=== PATIENT | male | born 1935 | race Caucasian/White ===

== ENCOUNTER → 2020-06-26 14:24 | Outpatient (BNVA) | payer MEDICARE, SELFPAY | PROVIDERS: PCP Family Medicine; Visit Provider Urology | DX: N40.1 Benign prostatic hyperplasia with lower urinary tract symptoms (principal); N13.8 Other obstructive and reflux uropathy; R39.15 Urgency of urination | CPT/HCPCS: 52000; 99212 ==

== ENCOUNTER 2020-08-25 07:31 | Emergency (ER) | payer MEDICARE, SELFPAY ==
[2020-08-25 08:02] VITALS: BP 140/61; PULSE 85; RESP 18; TEMP 36.6; O2SAT 96; BMI 30.4
--- NOTE | 2020-08-25 08:20 | ED.MALEGU ---
HPI - Male Genitourinary General Chief complaint: Urogenital-Male Stated complaint: Bladder distress Time Seen by Provider: 08/25/20 08:11 Source: patient Mode of arrival: ambulatory Limitations: no limitations History of Present Illness HPI Narrative: 85 yo male with past medical history of BPH, HTN, non-ischemic cardiomyopathy with EF 45% here with complaints of urinary retention since 2am. Patient reports multiple episodes of of this requiring Centeno catheter placement. He has a procedure tomorrow with Dr. Marte for laser ablation of the prostate. No nausea, vomiting, fevers, chills. Feeling well lately. No urinary symptoms prior to today. Related Data Home Medications Medication Instructions Recorded Confirmed lisinopril 5 mg PO DAILY 07/17/20 07/17/20 Previous Rx's Medication Instructions Recorded terazosin 10 mg capsule 10 mg PO BEDTIME 90 Days #90 cap 03/05/20 Allergies Allergy/AdvReac Type Severity Reaction Status Date / Time No Known Allergies Allergy Verified 06/26/20 15:02 Review of Systems Review of Systems: Yes all other systems are reviewed and are negative Constitutional: Constitutional: Reports no additional constitutional complaints, Denies body ache(s), Denies chills, Denies fever(s), Denies headache(s) and Denies weakness Eyes: Eyes: Reports no additional eye complaints and Denies change in vision ENT: Reports system reviewed and no additional complaints, except as documented, Denies dizziness, Denies headache(s), Denies nasal congestion, Denies nasal discharge and Denies neck pain Cardiovascular: Cardiovascular: Reports no additional cardiovascular complaints, Denies chest pain, Denies leg edema and Denies dyspnea Respiratory: Respiratory: Reports no additional respiratory complaints, Denies cough and Denies dyspnea Gastrointestinal: Gastrointestinal: Reports no additional gastrointestinal complaints, Denies abdominal pain, Denies diarrhea, Denies nausea and Denies vomiting Genitourinary: Genitourinary: Reports difficulty urinating, Denies dysuria, Denies flank pain, Denies penile discharge, Denies scrotal swelling, Denies testicular mass, Denies testicular pain and Denies urinary incontinence Musculoskeletal: Musculoskeletal: Reports no additional musculoskeletal complaints, Denies back pain, Denies arthralgias, Denies joint swelling, Denies neck pain, Denies numbness and Denies tingling Integumentary/Breasts: Skin/Breast: Reports system reviewed and no additional complaints, except as docu and Denies rash Neurologic: Reports system reviewed and no additional complaints, except as documented, Denies Abnormal speech present, Denies dizziness, Denies headache(s), Denies numbness, Denies tingling and Denies weakness PMFSH Past Medical History Attestation statement: The following information was validated with the patient. Source: old records reviewed and nursing notes reviewed Medical History BPH w urinary obs/LUTS History of BPH HTN (hypertension) Nonischemic cardiomyopathy Surgical History Surgical history unknown Social History Social History Patient Tobacco Use Status: Never used Tobacco Use of substances other than those prescribed or required for medical reasons: No Advance Directives: Yes Advance Directives Information Provided: Yes Advance Directives on File: No Physical Exam Vital Signs: Vital Signs: Last Vital Signs Temp 97.8 F 08/25/20 08:02 Pulse 85 08/25/20 08:02 Resp 18 08/25/20 08:02 BP 140/61 H 08/25/20 08:02 Pulse Ox 96 08/25/20 08:02 Body Mass Index 30.4 Const: General: cooperative, healthy appearing, comfortable and no acute distress Orientation/consciousness: patient oriented x3 Limitations: no limitations HENMT: Head: Yes normal to inspection Ears: hearing grossly normal bilaterally General nose exam: Normal external nose present Face and sinus: Yes normal facial exam Mouth: Normal oral and palatal mucosa present Throat: Yes posterior oropharynx normal Eyes: General: appearance normal, both eyes and all related structures Pupils: Equal, round and reactive pupils present Neck: Neck: Yes normal visual inspection Chest: Chest palpation & inspection: normal inspection of the chest Resp: Effort & Inspection: normal respiratory effort Auscultation: clear to auscultation bilaterally Cardio: Rate: regular rate Rhythm: regular rhythm Peripheral pulses: Peripheral pulses 2+ throughout GI: Other: Bladder distension noted Inspection: Yes normal to inspection Palpation (GI): Soft to palpation and nontender Auscultation: normal bowel sounds Back/Spine/Pelvis: Thoracic/Lumbar Spine: thoracic and lumbar spine normal to inspection Skin: General skin exam: no rashes or lesions noted Neuro: General: patient oriented x3, no focal motor deficits and normal sensation to monofilament Cranial nerves: Yes Equal, round and reactive pupils present Cognition (Neuro): normal cognition Speech: No Abnormal speech present Gait exam (Neuro): Normal gait present Motor exam (neuro): 5/5 motor strength present throughout Extrem: General: Yes normal to inspection, Yes no pedal edema and Yes no calf tenderness Course Course Course Narrative: 85-year-old male with a past medical history of BPH here with complaints of urinary retention since 02:00. Bladder scan shows greater than 800 mL of urine. Will need labs, UA, Centeno catheter placement 0930-Centeno catheter placed with no difficulty. Labs and urine are unremarkable. Discussed with urology on-call (Dr Fairbanks) who recommended following up in the morning for the scheduled procedure. Reviewed worrisome signs and symptoms with family and patient. Comfortable with discharge home. MDM - Male Genitourinary Differential Diagnosis Differential diagnosis: Likely urinary tract infection and acute retention of urine Medical Records Attestation: I reviewed the patient's medical records. Lab Data Attestation: I reviewed the patient's lab results. Result diagrams: 08/25/20 08:57 08/25/20 08:57 Labs: Lab Results 08/25/20 08/25/20 08/25/20 Range/Units 08:57 08:57 08:57 WBC 10.1 (4.8-10.8) X10*3/uL RBC 4.71 (4.60-5.80) X10*6/uL Hgb 14.4 (14.0-18.0) g/dl Hct 43.6 (42-52) % MCV 92.6 (80-98) fL MCH 30.6 (27.0-33.0) pg MCHC 33.0 (31.0-36.0) g/dl RDW 14.2 (11.0-16.0) % Plt Count 174 (160-400) X10*3/uL MPV 10.5 (9.4-12.4) fL Immature Gran % (Auto) 0.4 (0.0-0.4) % Neut % (Auto) 89.2 H (45-73) % Lymph % (Auto) 3.6 L (20-40) % [place] % (Auto) 6.5 (2-11) % Eos % (Auto) 0.1 (0-4) % Baso % (Auto) 0.2 (0-2) % Lymph # (Auto) 0.4 L (1.2-4.9) X10*3/uL [place] # (Auto) 0.7 (0.1-1.2) X10*3/uL Eos # (Auto) 0.0 (0.0-0.4) X10*3/uL Baso # (Auto) 0.0 (0.0-0.2) X10*3/uL Abs Immat Gran (auto) 0.04 H (0.00-0.03) X10*3/uL Absolute Neuts (auto) 9.0 H (2.0-8.3) X10*3/uL Absolute Nucleated RBC 0.000 (0.0-0.012) X10*3/uL Nucleated RBC % (auto) 0.0 (0.0-0.2) /100WBC Smear Tech's Comments VERIFIED Sodium 137 (135-145) mmol/L Potassium 4.7 (3.3-5.1) mmol/L Chloride 104 (96-108) mmol/L Carbon Dioxide 25 (22-29) mmol/L Anion Gap 13 (12-20) BUN 20 H (9-16) mg/dL Creatinine 1.15 (0.5-1.4) mg/dL Estim Creat Clear Calc 51.3 Estimated GFR > 60 Random Glucose 130 H (60-115) mg/dL Calcium 8.9 (8.4-10.2) mg/dL Urine Color YELLOW Urine Appearance CLEAR Urine pH 6.0 (5.0-8.0) Ur Specific [place] 1.010 (1.005-1.025) Urine Protein NEG (NEG-TRACE) MG/DL Urine Glucose (UA) NEG (NEG) MG/DL Urine Ketones NEG (NEG) MG/DL Urine Blood 2+ H (NEG) Urine Nitrite NEG (NEG) Ur Leukocyte Esterase NEG (NEG) Urine RBC 15-29 H (0) /HPF Urine WBC 0-2 (0-4) /HPF Ur Squamous Epith Cells NONE /LPF Urine Bacteria NONE /LPF Discharge Plan Discharge Clinical Impression: Acute retention of urine Patient Disposition: Home, Self-Care Instructions: Urinary Retention in Men (ED) Additional Instructions: Due to urinary retention you had a Centeno catheter placed. Urology was notified that you were here. Go to your procedure tomorrow as scheduled Your blood work and urine sample look a normal The Centeno catheter will stay in place until removed by Urology Prescriptions: No Action terazosin 10 mg capsule 10 mg PO BEDTIME 90 Days Qty: 90 RF: 2 lisinopril 5 mg tablet 5 mg PO DAILY RF: 0 Referrals: Aaron Marte MD [Physician] - 2 days Interventions: ED Discharge Assessment Last Done: 08/25/20 10:07 Discharge Date/Time: 08/25/20 10:07
[2020-08-25] MEDS: Lidocaine HCl 2 % Urojet 10 ML JEL.PF.APP TOPICAL (08:38)
--- NOTE | 2020-08-25 08:52 | PC.NURSE ---
Bladder scan 806, 16fr coude cath with 30ml balloon inserted without difficulty. 700ml output of yellow urine in drainage bag. Family at bedside. Labs/UA to be obtained
[2020-08-25 09:05] LABS: Basophils Percent Auto 0.2 % (0-2); Eosinophils Percent Auto 0.1 % (0-4); Hematocrit 43.6 % (42-52); Hemoglobin 14.4 g/dl (14.0-18.0); Imm Gran Abs Auto 0.04 X10*3/uL (0.00-0.03); Imm Gran Pct Auto 0.4 % (0.0-0.4); Lymphocytes Absolute Auto 0.4 X10*3/uL (1.2-4.9); Lymphocytes Percent Auto 3.6 % (20-40); MANUAL DIFF FLAG SCAN; Mean Corpuscular Hemoglobin 30.6 pg (27.0-33.0); Mean Corpuscular Volume 92.6 fL (80-98); Mean Platelet Volume 10.5 fL (9.4-12.4); Monocytes Absolute Auto 0.7 X10*3/uL (0.1-1.2); Monocytes Percent Auto 6.5 % (2-11); Neutrophils Percent Auto 89.2 % (45-73); Platelet Count 174 X10*3/uL (160-400); Red Blood Count 4.71 X10*6/uL (4.60-5.80); Red Cell Distribution Width 14.2 % (11.0-16.0); SCAN SMEAR FLAG 1; White Blood Count 10.1 X10*3/uL (4.8-10.8)
[2020-08-25 09:14] LABS: Glucose Urine UA NEG (NEG); Leukocyte Esterase Urine NEG (NEG); Nitrite Urine NEG (NEG); Urine Blood 2+ (NEG); Urine Ketones NEG (NEG); Urine Protein NEG (NEG-TRACE)
[2020-08-25 09:23] LABS: Appearance Urine CLEAR; Color Urine YELLOW
[2020-08-25 09:24] LABS: WBC Urine 0-2 /HPF (0-4)
[2020-08-25 09:25] LABS: SLIDE REVIEW VERIFIED
[2020-08-25 09:29] LABS: Anion Gap 13 (12-20); Blood Urea Nitrogen 20 mg/dL (9-16); Calcium 8.9 mg/dL (8.4-10.2); Carbon Dioxide 25 mmol/L (22-29); Chloride 104 mmol/L (96-108); Creatinine Clr Calc Pharmacy 51.3; Estimated Glomerular Filt Rate > 60; Glucose Random 130 mg/dL (60-115); Potassium 4.7 mmol/L (3.3-5.1); Sodium 137 mmol/L (135-145)
== END 2020-08-25 10:07 | disposition home or self-care (01) ==
PROVIDERS: Nurse Practitioner Family; Emergency Provider Emergency Medicine Emergency Medical Services
DX: N40.1 Benign prostatic hyperplasia with lower urinary tract symptoms (principal); R33.8 Other retention of urine
CPT/HCPCS: 36415; 51702; 51798; 80048; 81001; 85025; 99284; 99285

== ENCOUNTER 2020-08-26 07:54 | Day surgery (SDC) | payer MEDICARE, SELFPAY ==
--- NOTE | 2020-08-23 11:59 | HO.ANESPROP2 ---
Documented by User: Jackeline Soto 08/23/20 12:03 HPI - Anesthesia Eval Consult details Narrative: 85yo M for Laser Ablation Prostate w/Green Light Cardiac cleared PMFSH Active Problems Active Problems: All Active Problems (Updated 07/17/20 @ 11:13 by Maxine Dobbs) BPH w urinary obs/LUTS (Acute) Urinary urgency (Acute) Past Medical History Medical History BPH w urinary obs/LUTS History of BPH HTN (hypertension) Nonischemic cardiomyopathy Surgical History Surgical History Surgical history unknown Social History Social History Patient Tobacco Use Status: Never used Tobacco Use of substances other than those prescribed or required for medical reasons: No Are you DNR?: No Advance Directives: No Advance Directives Information Provided: Yes Meds Allergies Allergy/AdvReac Type Severity Reaction Status Date / Time No Known Allergies Allergy Verified 06/26/20 15:02 Home Medications Medication Instructions Recorded Confirmed Last Taken Type lisinopril 5 mg PO DAILY 07/17/20 07/17/20 08/26/20 04:00 History Exam Exam Date and Time: August 23, 2020 115 Narrative Narrative: Per cardiac clearance 07/30/20 EF 40% EKG: SR with first degree av block and PACs with LBBB Assessment and Plan Assessment Anesthesia Assessment: Chart Reviewed Documented by User: Cherri Ramos 08/26/20 10:20 PMFSH Past Medical History Medical History BPH w urinary obs/LUTS History of BPH HTN (hypertension) Nonischemic cardiomyopathy Surgical History Surgical History Surgical history unknown Social History Social History Patient Tobacco Use Status: Never used Tobacco Use of substances other than those prescribed or required for medical reasons: No Are you DNR?: No Advance Directives: No Advance Directives Information Provided: Yes Meds Allergies Allergy/AdvReac Type Severity Reaction Status Date / Time No Known Allergies Allergy Verified 06/26/20 15:02 Home Medications Medication Instructions Recorded Confirmed Last Taken Type lisinopril 5 mg PO DAILY 07/17/20 07/17/20 08/26/20 04:00 History Exam Airway Mallampati Class: II TM Dist: >3cm Neck ROM: Limited Loose/Missing/Broken Teeth: Yes Heart: RRR Lungs: CTA Assessment and Plan Assessment Anesthesia Assessment: Anesthesia Plan Discussed and Chart Reviewed Final Anesthetic Review NPO: Yes ASA Class: II Final Preanesthetic Review: Meds/Allgs Chart Reviewed, Consent Obtained/Reviewed and Anes Risks/Benef Reviewed Patient Risk: Low Procedure Risk: Low Anesthetic Plan Anesthetic Plan: GA Disposition: Standard PACU
[2020-08-26] VITALS (7 sets, daily range): BP systolic 115–133; BP diastolic 62–80; PULSE 53–75; RESP 16–18; TEMP 36.3–36.8; O2SAT 96–98; BMI 30.4
[2020-08-26] MEDS: Lactated Ringers 1,000 ML 100 ML IVCONT (08:37)
--- NOTE | 2020-08-26 11:51 | MHC.SHP ---
Pre-Procedural Eval Section A The patient is an INPATIENT: No Changes since office visit: No Cold of Flu in the past 2 weeks, No New Medical Problems, No Changes in Medication and No Patient answered all questions The History & Physical has been completed within 30 days and I have reviewed it.: Yes Section B Chief Complaint: benign prostatic hyperplasia Allergies: Allergies Allergy/AdvReac Type Severity Reaction Status Date / Time No Known Allergies Allergy Verified 06/26/20 15:02 Plan Diagnosis/Plan: Unchanged (Green light laser of prostate) I have reviewed the history and physical and performed a pertinent physical examination on my patient. No changes have occurred unless specified.
[2020-08-26] MEDS: levoFLOXacin/D5W 500 MG/100 ML PIGGYBACK 100 MG IV (12:01)
--- NOTE | 2020-08-26 13:32 | P.OP_ITS ---
Operative Note Operative Note Date of Service: 08/26/20 Narrative: PreOperative Diagnosis: recurring Bladder outlet obstruction Post Operative Diagnosis: recurring Bladder outlet obstruction Procedure: GreenLight laser enucleation of the prostate Surgeon: Dr Aaron Marte Anesthesia: General Indications for procedure: History of bladder outlet obstruction. Treated with alpha-latisha and other medications. Still with symptoms. prior TURP 2017 on cystoscopy shows bilateral lateral lobe regrowth Recommendation for prostate procedure with laser enucleation of prostate. It has been discussed. Focus was placed on development of retrograde examination which is a normal part of this procedure. Procedure: After informed consent was verified the patient was brought to the operating room and placed in a supine position. Anesthesia was administered per protocol. Patient was placed in modified dorsal lithotomy position and prepped and draped in a sterile fashion. Safety pause time-out was confirmed. Antibiotics have been given. Twenty-four [place] laser cystoscope was inserted per urethra. No abnormalities found the anterior posterior urethra. The bladder was filled on both ureteric orifices were seen in normal position away from our area of interest. Using a GreenLight laser settings of 80 w incisions were made at the 5 and 7 o'clock position. They were taken down and then laterally on each side. They were brought from the bladder neck down to the level of the veru. These defined the lateral aspects of the median lobe area. The median lobe was ablated and enucleated tissue removed. Once the median lobe area had been cleaned attention was directed to the lateral lobes. We started with the patient's left lateral lobe. Firstly the 05:00 o'clock groove was further developed. This was moved in the lateral position to undermine the tissue on the lateral side. Focus was then placed on the laser at the 1 o'clock position in developing a secondary groove down to the level of bladder fibers. The intervening tissue between these 2 grooves was removed with a combination of enucleation ablation working from the apex toward the bladder neck. A similar procedure was repeated on the patient's right-hand side. When this was completed debris and pieces of prostate removed from the bladder. Both ureteric orifices were reviewed again in shown to be patent in away from any areas of energy damage. The apical area was reviewed in any stray ooze was controlled. total of 160 kilojoules of energy was used. 19.8 minutes laser time A 22 [place] 30 cc balloon Centeno catheter was placed over stylet into the bladder. Clear efflux was obtained. 30 cc was placed in the balloon and gentle traction was placed. A snap was used to hold tension once the patient will be moved and transported. Once transportation its finish this novel be removed. A belladonna and opiate suppository was placed for postprocedure pain management. He tolerated procedure well was extubated in the operating and transferred in a stable condition to the recovery area. Pathology: Prostate tissue Drains: Centeno catheter
== END 2020-08-26 14:57 | disposition home or self-care (01) ==
PROVIDERS: Visit Provider Urology
PROC: 0V507ZZ Destruction of Prostate, Via Natural or Artificial Opening (ICD-10-PCS; CPT 52648; principal; 2020-08-26 09:10)
DX: N40.1 Benign prostatic hyperplasia with lower urinary tract symptoms (principal); N13.8 Other obstructive and reflux uropathy; I10 Essential (primary) hypertension; I42.8 Other cardiomyopathies; Z79.899 Other long term (current) drug therapy
CPT/HCPCS: 52648; 88305; J1100; J1956; J2405; J3010

== ENCOUNTER → 2020-08-29 13:07 | Outpatient (BNVA) | payer MEDICARE, SELFPAY | PROVIDERS: PCP Internal Medicine; Visit Provider Urology | DX: N40.1 Benign prostatic hyperplasia with lower urinary tract symptoms (principal); N13.8 Other obstructive and reflux uropathy | CPT/HCPCS: 51700; 51798; 99212 ==

== ENCOUNTER 2020-08-29 22:34 | Emergency (ER) | payer MEDICARE, SELFPAY ==
[2020-08-29 22:51] VITALS: BP 161/89; PULSE 94; RESP 18; TEMP 36.5; O2SAT 96; BMI 30.4
--- NOTE | 2020-08-29 23:55 | ED_ITS ---
HPI - Male Genitourinary General Chief complaint: Urogenital-Male Stated complaint: diff urinating Time Seen by Provider: 08/29/20 23:52 History of Present Illness HPI Narrative: Patient is 85-year-old male with a history of having a TURP procedure done by Dr. Marte on Wednesday. Had Centeno catheter pulled 2 days later. Now is unable to urinate. Patient is from home. No fever no chills. No coughing or congestion. Positive lower abdominal pain. Related Data Home Medications Medication Instructions Recorded Confirmed lisinopril 5 mg PO DAILY 07/17/20 07/17/20 fluticasone propionate 50 0 mcg INTRANASAL BID 08/29/20 mcg/actuation nasal spray,suspension Previous Rx's Medication Instructions Recorded terazosin 10 mg capsule 10 mg PO BEDTIME 90 Days #90 cap 03/05/20 trimethoprim 100 mg PO Q12H 10 Days #20 tab 08/26/20 Allergies Allergy/AdvReac Type Severity Reaction Status Date / Time No Known Allergies Allergy Verified 08/29/20 13:14 Review of Systems Review of Systems: Constitutional: No Weight loss, No Fever, No Chills, No Night Sweats, No Fatigue, No Malaise ENT/Mouth: No Hearing loss, No Ear Pain, No Nasal Congestion, No Sinus Pain, No Hoarseness, No sore throat, No Rhinorrhea, No Swallowing Difficulty Eyes: No Eye Pain, No Swelling, No Redness, No Foreign Body, No Discharge, No Vision Changes Cardiovascular: No Chest Pain, No SOB, No Dyspnea on Exertion, No Orthopnea, No Edema, No Palpitations Respiratory: No Cough, No Sputum, No Wheezing, No Smoke Exposure, No Dyspnea Gastrointestinal: No Nausea, No Vomiting, No Diarrhea, No Constipation, No abdominal Pain, No Hematochezia, No Melena Genitourinary: no irregular bleeding, No Dysuria, No Urinary Frequency, No Hematuria, No Urinary Incontinence, No Urgency, No Flank Pain, No Urinary Flow Changes, No Hesitancy Musculoskeletal: No joint pain, No Myalgias, No Joint Swelling Skin: No Skin Lesions, No rash Neuro: No Weakness, No Numbness, No Paresthesias, No Loss of Consciousness, No Dizziness, No Headache Psych: No Anxiety/Panic, No Depression, No SI/HI/AH/VH, No Social Issues, Heme/Lymph: No Bruising, No Bleeding,No Lymphadenopathy Endocrine: No Polyuria, No Polydipsia, No Temperature Intolerance [facility] Past Medical History Medical History BPH w urinary obs/LUTS History of BPH HTN (hypertension) Nonischemic cardiomyopathy Surgical History Surgical history unknown Social History Social History Patient Tobacco Use Status: Never used Tobacco Advance Directives: No Advance Directives Information Provided: Yes Physical Exam Vital Signs: Vital Signs: Last Vital Signs Temp 97.7 F 08/29/20 22:51 Pulse 94 08/29/20 22:51 Resp 18 08/29/20 22:51 BP 161/89 H 08/29/20 22:51 Pulse Ox 96 08/29/20 22:51 Body Mass Index 30.4 Appearance: Alert. Oriented X3. No acute distress. Eyes: Pupils equal, round and reactive to light. ENT: Pharynx normal. Neck: Normal inspection. Neck supple. No lymph nodes noted. No crepitus CVS: Normal heart rate and rhythm. Pulses normal. Normal S1 and S2 Respiratory: No respiratory distress. Breath sounds normal. No Wheezing. No rales Abdomen: Soft and nontender. No rigidity. No distention. good BS x4 Skin: Skin warm and dry. Normal skin color. Normal skin turgor. Extremities: No lower extremity edema. Neurovascular intact to all extremities. No Lacerations. No Rash Neuro: Oriented X 3. No motor deficit. No sensory deficit. Moving all extermities. No slurred speech MDM - Male Genitourinary MDM Narrative Medical decision making narrative: After discussion with Dr. Marte. Daniella with putting in a 16 [place] coude catheter. Patient was cleaned using Betadine. Subsequently 20 cc of viscous lidocaine was used for anesthesia. A 16 [place] coude catheter was placed without any complication. Balloon was coughed up to 10 cc. Drain over 600 cc of urine. Patient's symptoms completely relieved. Will have patient follow with Dr. Marte on an outpatient basis. Currently in stable condition. Will discharge home. Medical Records Attestation: I reviewed the patient's medical records. Discharge Plan Discharge Clinical Impression: Acute retention of urine Patient Disposition: Home, Self-Care Instructions: Urinary Retention in Men (ED) Prescriptions: No Action terazosin 10 mg capsule 10 mg PO BEDTIME 90 Days Qty: 90 RF: 2 trimethoprim 100 mg tablet 100 mg PO Q12H 10 Days Qty: 20 RF: 0 lisinopril 5 mg tablet 5 mg PO DAILY RF: 0 Referrals: Aaron Marte MD [Physician] - 2 days
[2020-08-30] MEDS: Lidocaine HCl 2 % Urojet 10 ML JEL.PF.APP TOPICAL ×2 (00:58)
[2020-08-30 01:10] VITALS: BP 110/61; PULSE 74; RESP 16; TEMP 36.5; O2SAT 95
== END 2020-08-30 01:29 | disposition home or self-care (01) ==
PROVIDERS: Emergency Provider Emergency Medicine Emergency Medical Services
DX: N40.1 Benign prostatic hyperplasia with lower urinary tract symptoms (principal); R33.8 Other retention of urine; I10 Essential (primary) hypertension; Z79.899 Other long term (current) drug therapy; Z98.890 Other specified postprocedural states
CPT/HCPCS: 51702; 99284

== ENCOUNTER → 2020-09-02 08:42 | Outpatient (BNVA) | payer MEDICARE, SELFPAY | DX: N40.1 Benign prostatic hyperplasia with lower urinary tract symptoms (principal); N13.8 Other obstructive and reflux uropathy; Z78.9 Other specified health status | CPT/HCPCS: 51700; 51701; 99212 ==

== ENCOUNTER → 2020-09-17 09:01 | Outpatient (BNVA) | payer MEDICARE, SELFPAY | DX: Z78.9 Other specified health status (principal) | CPT/HCPCS: 51700; 51798; 99212 ==

== ENCOUNTER → 2020-10-30 08:38 | Outpatient (BNVA) | payer MEDICARE, SELFPAY | PROVIDERS: PCP Internal Medicine; Visit Provider Urology | DX: N40.1 Benign prostatic hyperplasia with lower urinary tract symptoms (principal); N13.8 Other obstructive and reflux uropathy | CPT/HCPCS: 51798; 99212 ==

== ENCOUNTER → 2021-09-23 13:57 | Outpatient (BNVA) | payer MEDICARE, SELFPAY | PROVIDERS: PCP Internal Medicine; Visit Provider Urology | DX: N40.1 Benign prostatic hyperplasia with lower urinary tract symptoms (principal); N13.8 Other obstructive and reflux uropathy; R39.15 Urgency of urination | CPT/HCPCS: 51798; 99212 ==

== ENCOUNTER 2022-02-25 14:02 | Outpatient (REF) | payer MEDICARE, MEDICAID, SELFPAY | END 2022-02-25 14:03 | disposition home or self-care (01) | LOC: HO.LAB 14:02 | PROVIDERS: Visit Provider Urology | DX: R39.15 Urgency of urination (principal) | CPT/HCPCS: 51701; 87086 ==